=== PATIENT | male | born 1975 | race African-American/Black ===

== ENCOUNTER 2017-09-05 11:29 | Emergency (ER) | payer MEDICAID, OTHER ==
[~2017-09-05] VITALS: Ht 177.8 cm; Wt 93.0 kg
[2017-09-05 11:36] VITALS: BP 132/75
[2017-09-05 13:02] LABS: BASOPHILS % 0.6 % (0.0-2.0); EOSINOPHILS % 0.3 % (0.0-5.0); HEMATOCRIT. 41.4 % (42.0-52.0); HEMOGLOBIN. 13.2 g/dL (14.0-18.0); LYMPHOCYTES % 14.6 % (20.0-50.0); MEAN CORPUSCULAR VOLUME 87.6 fL (80.0-94.0); MEAN PLATELET VOLUME 7.6 fl (7.4-10.4); MONOCYTES % 9.7 % (2.0-8.0); NEUTROPHILS % 74.8 % (40.0-76.0); PLATELET 344 x1000/uL (130-400); RED BLOOD CELL COUNT 4.73 mill/uL (4.7-6.1); RED CELL DISTRIBUTION WIDTH 14.5 % (11.6-14.6)
[2017-09-05 13:16] LABS: CARBON DIOXIDE 27 mEq/L (21-32); CHLORIDE 102 mEq/L (98-107)
[2017-09-05] MEDS ORDERED: PIPERACILLIN/TAZ 3.375G PREMIX 50 ML IV ONE (14:00)
[2017-09-05] MEDS ORDERED: SODIUM CHLORIDE 0.9% 1000ML BAG (SEPSIS BOLUS) IV ONE (14:00)
[2017-09-05] MEDS ORDERED: VANCOMYCIN 1 G PREMIX 200 ML IV ONE (14:00)
== END 2017-09-05 14:17 | disposition left against medical advice (07) ==
LOC: ER 11:45
DX: L03.116 Cellulitis of left lower limb (principal); I10 Essential (primary) hypertension; F17.200 Nicotine dependence, unspecified, uncomplicated
CPT/HCPCS: 36415; 73590; 80053; 85025; 99285; Z7610; J7030

== ENCOUNTER 2018-07-07 19:35 | Emergency (ER) | payer MEDICAID | END 2018-07-07 21:23 | disposition left against medical advice (07) | LOC: ER 19:35 | DX: Z53.21 Procedure and treatment not carried out due to patient leaving prior to being seen by health care provider (principal) ==

== ENCOUNTER 2018-07-08 06:19 | Emergency (ER) | payer MEDICAID ==
[~2018-07-08] VITALS: Ht 177.8 cm; Wt 82.0 kg
[2018-07-08] MEDS ORDERED: KETOROLAC 60MG/2ML VIAL IM ONE (08:15)
[2018-07-08 11:10] VITALS: BP 107/66
== END 2018-07-08 11:12 | disposition home or self-care (01) ==
LOC: ER 08:20
DX: M54.9 Dorsalgia, unspecified (principal); I10 Essential (primary) hypertension; F17.200 Nicotine dependence, unspecified, uncomplicated; Z98.890 Other specified postprocedural states
CPT/HCPCS: 96372; 99283; J1885

== ENCOUNTER 2019-02-25 18:04 | Emergency (ER) | payer MEDICAID ==
[~2019-02-25] VITALS: Ht 175.3 cm; Wt 78.0 kg
[2019-02-25 21:57] VITALS: BP 118/65
[2019-02-25] MEDS: KETOROLAC 60MG/2ML VIAL IM ONE (21:57)
== END 2019-02-25 21:59 | disposition home or self-care (01) ==
LOC: ER 18:04
DX: J20.9 Acute bronchitis, unspecified (principal); E11.9 Type 2 diabetes mellitus without complications; I10 Essential (primary) hypertension; E78.00 Pure hypercholesterolemia, unspecified
CPT/HCPCS: 96372; 99283; J1885

== ENCOUNTER 2019-04-29 12:26 | Emergency (ER) | payer MEDICAID ==
[~2019-04-29] VITALS: Ht 177.8 cm; Wt 84.0 kg
[2019-04-29] MEDS ORDERED: IBUPROFEN 600MG TABLET PO ONE (13:15)
[2019-04-29 14:01] VITALS: BP 116/80
== END 2019-04-29 14:02 | disposition home or self-care (01) ==
LOC: ER 12:26
DX: L02.411 Cutaneous abscess of right axilla (principal); I10 Essential (primary) hypertension; F17.210 Nicotine dependence, cigarettes, uncomplicated
CPT/HCPCS: 99282

== ENCOUNTER 2019-05-01 15:06 | Emergency (ER) | payer MEDICAID ==
[~2019-05-01] VITALS: Ht 177.8 cm; Wt 84.0 kg
[2019-05-01 20:11] VITALS: BP 156/96
== END 2019-05-01 20:11 | disposition home or self-care (01) ==
LOC: ER 15:06
DX: L02.411 Cutaneous abscess of right axilla (principal)
CPT/HCPCS: 99281